=== PATIENT | female | born 1975 | race Caucasian/White ===

== ENCOUNTER 2017-01-13 19:53 | Emergency (ER) | payer OTHER ==
[~2017-01-13] VITALS: Ht 152.4 cm; Wt 63.2 kg
[2017-01-13] MEDS ORDERED: ACET-66 PO (20:06)
[2017-01-13 22:13] LABS: APPEARANCE,URINE CLEAR (CLEAR); GLUCOSE, URINE (UA) NEGATIVE (NEGATIVE); KETONES,URINE NEGATIVE (NEGATIVE); LEUKOCYTE ESTERASE ,URINE NEGATIVE (NEGATIVE); OCCULT BLOOD,URINE NEGATIVE (NEGATIVE); PROTEIN,URINE NEGATIVE (NEGATIVE)
[2017-01-13 22:15] LABS: ADD UA MICROSCOPIC NO
[2017-01-13] MEDS ORDERED: KETOROLAC TROMETHAMINE 60 MG/2 ML VIAL IM ONE (22:30)
[2017-01-13] MEDS ORDERED: HYDROCODONE/ACETAMINOPHEN 5-325 MG TABLET PO ONE (22:30)
[2017-01-13] MEDS ORDERED: METHOCARBAMOL 500 MG TABLET PO ONE (22:30)
[2017-01-14 00:31] VITALS: BP 114/60
== END 2017-01-14 01:05 | disposition home or self-care (01) ==
LOC: EMS 19:56
DX: M54.5 Low back pain (principal)
CPT/HCPCS: 72100; 81003; 84703; 96372; 99285; J1885